=== PATIENT | female | born 1940 | race Caucasian/White ===

== ENCOUNTER 2020-11-12 05:36 | Outpatient (CLI) | payer MEDICARE, OTHER ==
[~2020-11-12] VITALS: Ht 167.6 cm; Wt 83.9 kg
[2020-11-12] MEDS ORDERED: DAPA5TAB PO (10:19)
[2020-11-12] MEDS ORDERED: PANT40TA52 PO (10:19)
[2020-11-12] MEDS ORDERED: SITA50TA PO (10:19)
[2020-11-12] MEDS ORDERED: GLIM4TAB5 PO (10:19)
[2020-11-12] MEDS ORDERED: ASPI-999 PO (10:19)
[2020-11-12] MEDS ORDERED: CALC-250 PO (10:19)
[2020-11-12] MEDS ORDERED: LEVO125C4 PO (10:19)
[2020-11-12] MEDS ORDERED: RT-ALBUINH IH (10:19)
[2020-11-12] MEDS ORDERED: LISI10TA25 PO (10:19)
== END 2020-11-12 10:44 | disposition home or self-care (01) ==
LOC: PREOP 05:36
PROVIDERS: ATTEND Orthopaedic Surgery
DX: Z01.818 Encounter for other preprocedural examination (principal)

== ENCOUNTER 2020-11-13 09:54 | Day surgery (SDC) | payer MEDICARE, OTHER ==
[~2020-11-13] VITALS: Ht 167.6 cm; Wt 83.9 kg
[2020-11-13] VITALS (11 sets, daily range): BP systolic 140–186; BP diastolic 72–95
[~2020-11-13 09:54] MED LIST: ASPI-999 PO; CALC-250 PO; DAPA5TAB PO; GLIM4TAB5 PO; HYDROcodone/APAP 7.5 MG/325 MG (LORTAB, LORCET PLUS) TABLET PO PRN; LEVO125C4 PO; LISI10TA25 PO; PANT40TA52 PO; RT-ALBUINH IH; SITA50TA PO
[2020-11-13] MEDS ORDERED: fentaNYL INJ 100 MCG/2 ML AMP IV ONE (09:55)
[2020-11-13] MEDS ORDERED: ceFAZolin INJECTION 1,000 MG in WATER (STERILE) FOR INJECTION 10 ML IV ONE (10:00)
[2020-11-13] MEDS: LACTATED RINGERS 1,000 ML IV PRN ×2 (10:32→13:12)
[2020-11-13] MEDS ORDERED: SCOPOLAMINE 1.5 MG (TRANSDERM-SCOP) PATCH ONE (10:48)
[2020-11-13] MEDS ORDERED: FAMOTIDINE 20MG/2ML IV (PEPCID) ONE (10:48)
[2020-11-13] MEDS ORDERED: ONDANSETRON 4 MG/2 ML (SDV) Z0FRAN ONE (10:48)
--- NOTE | 2020-11-13 10:53 | Progress Note-Pre Operative ---
Pre-Operative Progress Note H&P Reviewed The H&P was reviewed, patient examined and no changes noted. Date Seen by Provider: Nov 13, 2020 Time Seen by Provider: 10:52 Date H&P Reviewed: Nov 13, 2020 Time H&P Reviewed: 10:53 Pre-Operative Diagnosis: comminuted, intra articular left distal radius fracture DAPHNEY LIMA MD Nov 13, 2020 10:53
--- NOTE | 2020-11-13 10:54 | Progress Note-Post Operative ---
Post-Operative Progess Note Surgeon (s)/Fur Finisher Seamstress (s) Surgeon DAPHNEY LIMA MD Fur Finisher Seamstress: Richard Coleman Pre-Operative Diagnosis comminuted, intra articular left distal radius fracture Post-Operative Diagnosis comminuted, intra articular left distal radius fracture Procedure & Operative Findings Date of Procedure 11/13/20 Procedure Performed/Findings ORIF left distal radius Anesthesia Type GETA Estimated Blood Loss Estimated blood loss (mL): minimal Specimens/Packing Specimens Removed none Packing: none DAPHNEY LIMA MD Nov 13, 2020 10:54
[2020-11-13] MEDS ORDERED: SCOPOLAMINE 1.5 MG (TRANSDERM-SCOP) PATCH TOP ONE (11:00)
[2020-11-13] MEDS ORDERED: FAMOTIDINE 20MG/2ML IV (PEPCID) IV ONE (11:00)
[2020-11-13] MEDS ORDERED: ONDANSETRON 4 MG/2 ML (SDV) Z0FRAN IV ONE (11:00)
[2020-11-13] MEDS ORDERED: BUPIVACAINE 0.25% 30 ML (SENSORCAINE) VIAL ONE (11:28)
[2020-11-13] MEDS ORDERED: MIDAZOLAM 2 MG/2 ML (VERSED) VIAL ONE (12:00)
[2020-11-13] MEDS ORDERED: ONDANSETRON 4 MG/2 ML (SDV) Z0FRAN IVP PRN (13:15)
[2020-11-13] MEDS ORDERED: HYDROmorphone 2 MG/ML VIAL (DILAUDID) IV ONE (13:15)
--- NOTE | 2020-11-13 14:39 | Diagnostic Imaging Report ---
INDICATION: Fluoroscopy for left wrist surgery. Fluoroscopy was provided in the OR during left wrist ORIF. 60 seconds of fluoroscopic time was utilized. 2 images were obtained and demonstrate a plate and screw transfixing the distal radius fracture. Alignment appears anatomic. IMPRESSION: Fluoroscopy for distal left radius ORIF. Dictated by: Dictated on workstation # [id number]
--- NOTE | 2020-11-13 15:36 | Anesthesia-General Post-Op ---
General Patient Condition Mental Status/LOC: Same as Preop Cardiovascular: Satisfactory Nausea/Vomiting: Absent Respiratory: Satisfactory Pain: Controlled Complications: Absent Post Op Complications Complications None Follow Up Care/Instructions Patient Instructions None needed. Anesthesia/Patient Condition Patient Condition Patient is doing well, no complaints, stable vital signs, no apparent adverse anesthesia problems. No complications reported per nursing. D/C home per [facility] Criteria: Yes LAKSHMI BRINK CRNA Nov 13, 2020 15:36
--- NOTE | 2020-11-13 21:13 | OPERATIVE REPORT ---
DATE OF SERVICE: 11/13/2020 PREOPERATIVE DIAGNOSIS: Displaced intra-articular left distal radius fracture (greater than 4 part). POSTOPERATIVE DIAGNOSIS: Displaced intra-articular left distal radius fracture (greater than 4 part). PROCEDURE: Open reduction and internal fixation of left distal radius. SURGEON: Andrew Lima MD CIVIL DIVISION DEPUTY SHERIFF: Richard Coleman, who assisted throughout the procedure and closed the incision. ANESTHESIA: General endotracheal by James Redding CRNA. TOURNIQUET TIME: 39 minutes at 250 mmHg. ESTIMATED BLOOD LOSS: Minimal. DRAINS: None. COMPLICATIONS: None. POSTOPERATIVE PLAN: Conversion to splint in 2 weeks. The patient was transferred to the recovery room awake and in stable condition. MATERIALS: Synthes distal radius plate. STATEMENT OF MEDICAL NECESSITY: The patient is an 80-year-old female who fell on her outstretched left upper extremity late last week and was found to have a comminuted intra-articular left distal radius fracture. There was marked comminution with shortening and dorsal displacement, the patient was counseled regarding treatment options and elected to proceed with surgical intervention. DESCRIPTION OF PROCEDURE: After risks and benefits of procedure were discussed and questions were answered, an informed consent was signed and placed on chart, the operative site was confirmed in the preoperative holding area initialed by the surgeon. The patient was then transferred to the operating room. After adequate levels of general endotracheal anesthetic were obtained, a timeout was called, confirming the operative site. Left upper extremity was prepped and draped in the usual sterile fashion with arm elevated, tourniquet inflated to 250 mmHg and an incision was made in line over the flexor carpi radialis. Flexor carpi FCR sheath was opened. This was retracted ulnarly. The neurovascular bundle was retracted radially. The fracture site was exposed in a subperiosteal fashion by elevating the pronator quadratus a Synthes distal radius plate was placed and the gliding cortical screw was placed. This was found to be in good position on fluoroscopy in both the AP and lateral planes. The distal locking screws were placed with a #4, placed with good purchase. Fluoroscopy in AP and lateral planes revealed well reduced fracture. The proximal cortical screw was then placed with good purchase. Fluoroscopy in AP, lateral and oblique planes revealed anatomic reduction of the fracture with well-placed hardware. There was no intraarticular placement of the hardware. The wrist was taken through range of motion under fluoroscopic under direct visualization with full motion obtained and no impingement noted and no intra-articular penetration noted. The tourniquet was deflated. Pressure was used for hemostasis. Wound was copiously irrigated, 3-0 Vicryl was used to reapproximate subcutaneous tissue. Skin was closed with radha. A soft dressing and splint were applied. The patient was transferred to the recovery room awake and in stable condition. Job ID: [id number] DocumentID: [id number] Dictated Date: 11/13/2020 13:01:35 Rod Greaser Date: 11/13/2020 21:12:49 Dictated By: ANDREW LIMA MD
--- OUTSIDE RECORDS SUMMARY | 2020-11-13 23:14 | XMS REPORT | Clinical Summary ---
Author Author [facility] Organization [facility] Address Unknown Phone Unavailable Care Team Providers Care Disease And Insect Control Boss Name Role Phone ErickSosa Unavailable Unavailable Edy Hyman MD Unavailable Alma Pisano MD PCP Janeth Kohli AUD Unavailable Tomasa Stone AUD Unavailable Source Comments Some departments are not documenting in the electronic medical record. If you d o not see the information that you expected, contact Release of Information in located within [facility] [employer] Information Management department at [phone] for further assistan ce in locating additional records.[facility] Allergies No Known Active Allergies Medications End Date Status Medication Sig Dispensed Refills Start Date Active ALBUTEROL IN Inhale by 0 mouth. Active levothyroxine (SYNTHROID) Take 50 mcg 0 50 mcg tablet by mouth daily. Active pantoprazole DR Take 40 mg by 0 (PROTONIX) 40 mg tablet mouth daily. 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 Dizziness 11/15/2014 Surgical History Surgery Date Site/Laterality Comments HYSTERECTOMY EAR SURGERY 1970 Bilateral Medical History Medical History Date Comments Osteosclerosis Vertigo Hypothyroidism Hearing loss Family History Relation Name Status Comments Father Mother Social History Date Tobacco Use Types Packs/Day Years Used Never Smoker Smokeless Tobacco: Never Used Drinks/Week oz/Week Comments Alcohol Use No Sex Assigned at Date Recorded Not on file Last Filed Vital Signs Reading Time Taken Comments Vital Sign 111/66 12/24/2014 4:43 PM CDT Blood Pressure 51 12/24/2014 2:55 PM CDT Pulse - - Temperature - - Respiratory Rate - - Oxygen Saturation - - Inhaled Oxygen Concentration 95.7 kg (211 lb) 12/24/2014 4:43 PM CDT Weight 167.6 cm (5' 6") 12/24/2014 4:43 PM CDT Height 34.06 12/24/2014 4:43 PM CDT Body Mass Index Plan of Treatment Health Maintenance Due Date Last Done Comments MEDICARE ANNUAL WELLNESS 1940 VISIT DTAP/TDAP VACCINES (1 - 1957 Tdap) PHYSICAL (COMPREHENSIVE) 1957 EXAM SHINGLES RECOMBINANT 1989 VACCINE (1 of 2) OSTEOPOROSIS 2004 SCREENING/MONITORING PNEUMONIA (PPSV23) 2004 VACCINE (1 of 1 - PPSV23) INFLUENZA VACCINE 01/03/2021 Results Not on filefrom Last 3 Months Insurance Type Payer Benefit Subscriber ID Effective Phone Address Plan / Dates Group Medicare MEDICARE MEDICARE [id number] 2004- PART A AND Present B PPO [facility] AARP [id number] 2013-P resent [phone] Advance Directives Patient Ibm Bpm Developer Explanation Type Date Recorded Advance 10/10/2014 9:30 AM Directive/DPOA
--- OUTSIDE RECORDS SUMMARY | 2020-11-13 23:14 | XMS REPORT | Clinical Summary ---
Author Author [facility] Organization [facility] Address Unknown Phone Unavailable Care Team Providers Care Neon Pumper Name Role Phone Josselyn Cohen PCP Allergies No Known Active Allergies Medications End Date Status Medication Sig Dispensed Refills Start Date Active levothyroxine (SYNTHROID, Take 125 mcg 0 LEVOTHROID) 125 MCG by mouth tablet daily. Active ALBUTEROL INHL Inhale. 0 Active pantoprazole (PROTONIX) Take 40 mg by 0 40 MG tablet mouth as needed. Active VENTOLIN HFA 90 0 mcg/actuation HFA inhaler 8 Active gabapentin (NEURONTIN) 0 100 MG capsule 8 Active glimepiride (AMARYL) 4 MG 0 tablet 8 Active naproxen (NAPROSYN) 500 Take 1 tablet 20 tablet 0 MG tablet (500 mg 9 total) by mouth 2 (two) times a day with meals. Active lisinopriL Take 2.5 mg 0 (PRINIVIL,ZESTRIL) 2.5 MG by mouth tablet daily. Active aspirin 81 MG chewable Chew 81 mg. 0 tablet Active Problems Problem Noted Date Renal artery stenosis 03/21/2020 Triquetral chip fracture, left, with routine healing, subsequent encounter 01/27/2018 Crushing injury of right index finger 11/15/2017 Nocturnal leg cramps 06/22/2017 Plantar fasciitis, bilateral 06/22/2017 Esophageal dysphagia 02/12/2017 Skin lesion of right leg 08/12/2015 DM (diabetes mellitus), type 2 08/02/2015 Blood glucose elevated 02/09/2015 Hyperlipidemia 01/18/2015 History of hysterectomy for indication other than can cer 12/04/2014 Overview: Formatting of this note might be differ ent from the original. At time of of her son 1985, breech , need to repair bladder injury and remove uterus. OVARI ES STILL PRESENT TODAY. 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 Of bilateral ear ossicles. S/p excision and replacement with metal ossicles. Bundle branch block 09/21/2014 Difficult or painful urination 06/12/2014 Hesitancy of micturition 06/12/2014 Asthmatic breathing 01/09/2014 Cough 01/09/2014 Family History Medical History Relation Name Comments Cancer Sister Relation Name Status Comments Sister Social History Date Tobacco Use Types Packs/Day Years Used Quit: 06/11/2013 Current Every Day Smoker Cigarettes 1 58 Smokeless Tobacco: Never Used Comments Alcohol Use Standard Drinks/Week No 0 (1 standard drink = 0.6 o z pure alcohol) Sex Assigned at Date Recorded Not on file Last Filed Vital Signs Reading Time Taken Comments Vital Sign 134/87 03/21/2020 2:00 PM PROJECT MANAGEMENT DIRECTOR Blood Pressure 66 03/21/2020 1:57 PM PROJECT MANAGEMENT DIRECTOR Pulse 36.9 C (98.4 F) 03/21/2020 1:57 PM PROJECT MANAGEMENT DIRECTOR Temperature 20 03/21/2020 1:57 PM PROJECT MANAGEMENT DIRECTOR Respiratory Rate 96% 03/21/2020 1:57 PM PROJECT MANAGEMENT DIRECTOR Oxygen Saturation - - Inhaled Oxygen Concentration 82.6 kg (182 lb 3.2 oz) 03/21/2020 1:57 PM PROJECT MANAGEMENT DIRECTOR Weight 165.1 cm (5' 5") 03/21/2020 1:57 PM PROJECT MANAGEMENT DIRECTOR Height 30.32 03/21/2020 1:57 PM PROJECT MANAGEMENT DIRECTOR Body Mass Index Plan of Treatment Health Maintenance Due Date Last Done Comments Advance Directive has 1940 been filed Diabetes Mellitus 1940 Ophthalmology Exam Lipid Screening 1940 Medicare Annual Wellness 1940 Spirometry # 1940 Td/Tdap# 1940 Tobacco Cessation 1939 Counseling # Pneumococcal Vaccine: 65+ 1945 08/04/2019 Years (1 of 2 - PPSV23) Diabetes Mellitus Foot 1949 Exam COVID-19 Vaccine (1) 1951 Zoster Vaccine# (1 of 2) 1989 Advance Directive 2004 Conversation Depression Screening 2004 PHQ-9 # Osteoporosis Screening 2004 Patient Needs Advance 2004 Directive Diabetes Mellitus 08/18/2018 02/18/2018, Hemoglobin A1C 10/13/2017 Fall Risk Assessment # 04/08/2019 04/08/2018 Influenza Vaccine (#1) 2021 12/22/2019, 12/19/2018, 02/14/2018, Additional history exists Implants Device Identifier Shelf Expiration Date Model / Serial / L ot Implanted Type Area Manufactur er Ear Inner Results Not on filefrom Last 3 Months Insurance Type Payer Benefit Subscriber ID Effective Phone Address Plan / Dates Group Medicare MEDICARE MEDICARE [id number] 2004- [place] PART A B Present [place], [place] COMMERCIAL-NONCONTRACTED MUTUAL OF [id number] 2015- JAIME Present MEDICARE SUPPLEMENT [id number] Dominique Renner E Personal/F Self 1940 [phone] (Home) [place], [place] [address] Green,Dominique E Personal/F Self 1940 [phone] (Home) [place], [place] [address] Advance Directives For more information, please contact: [phone] Patient Public Improvement Inspector Explanation Type Date Recorded Health Care Directive Date Inactivated Comments Code Status Date Activated 07/16/2014 2:59 PM Full Code 07/16/2014 10:25 AM 06/18/2014 1:56 PM Full Code 06/18/2014 10:29 AM
== END 2020-11-13 16:00 | disposition home or self-care (01) ==
LOC: SDC 09:54
PROVIDERS: ATTEND Orthopaedic Surgery
DX: S52.572A Other intraarticular fracture of lower end of left radius, initial encounter for closed fracture (principal); I10 Essential (primary) hypertension; K21.9 Gastro-esophageal reflux disease without esophagitis; E11.9 Type 2 diabetes mellitus without complications; E03.9 Hypothyroidism, unspecified; Z79.899 Other long term (current) drug therapy; Z79.890 Hormone replacement therapy
CPT/HCPCS: 76000; 82947; 87081